=== PATIENT | male | born 1975 | race Caucasian/White ===

== ENCOUNTER 2020-02-08 07:01 | Outpatient (REF) | payer MEDICAID, SELFPAY | END 2020-02-08 07:02 | disposition home or self-care (01) | LOC: HO.LAB 07:01 | PROVIDERS: Visit Provider Internal Medicine | DX: Z20.828 Contact with and (suspected) exposure to other viral communicable diseases (principal) | CPT/HCPCS: C9803; U0003 ==

== ENCOUNTER 2024-11-16 09:34 | Outpatient (REF) | payer OTHER, SELFPAY ==
--- OUTSIDE RECORDS SUMMARY | 2024-11-16 09:00 | XMS_ITS | Encounter Summary ---
Demographics Address [address] [place] [address] [address] [place] [address] Mobile Phone Work Phone Home Phone Preferred Language es Marital Status Single Denominational Affiliation Unknown Race White Ethnic Group Unknown Author Organization [employer] Address [address] [facility] [address] [place] [address] Care Team Providers Care Brass Finisher Name Role Phone Jeni Reyes MD Primary Care Provider [phone] Reason for Referral * Consultation (Urgent) - Pending Review Specialty Diagnoses / Procedures Referred By Kb winkler Referred To Contact Gastroenterology Diagnoses Colon cancer screening Polyp of cecum Jeni Reyes MD [address] [place] [address] Phone: tel: fax: Referral ID Status Reason Start Date Expiration Date Visits Requested Visits Authorized [id number] Pending Review Specialty Services Required 11/16/2024 11/16/2025 1 1 Scheduling Instructions [facility] for repeat colonoscopy due in 03/2025 Encounter Details Date Type Department Care Team (Latest Contact Info) Description 11/16/2024 9:00 AM EDT Office Visit [facility] MED & PEDS [address] [place] [address] Jeni Reyes MD [address] [place] [address] Chronic pain of both knees (Primary Dx); Cervical disc disorder with radiculopathy; Lumbar disc disease with radiculopathy; Lateral epicondylitis of left elbow; Colon cancer screening; Polyp of cecum; Depressive disorder Social History Tobacco Use Types Packs/Day Years Used Date Smoking Tobacco: Never Passive Smoke Exposure: Never Smokeless Tobacco: Never Depression Answer Date Recorded Patient Health Questionnaire-9 Score 13 11/16/2024 Patient Health Questionnaire-9 Score 13 11/16/2024 Last PHQ-9: Questionnaire Data Not on file 0 11/16/2024 Housing Stability Answer Date Recorded What is your housing situation today? I have madelyn meza 05/05/[address] you li ve. Do you have problems with any of the following? None of the above 05/05/2024 Food Insecurity Answer Date Recorded Within the past 12 months, y ou worried that your food would run out before you got money to buy more: Never True 05/05/2024 Within the past 12 months,th e food you bought just didn't last and you didn't have enough money to get more: Never True Transportation Answer Date Recorded In the past 12 months, has l ack of transportation kept you from medical appts, meetings, work or from getting things needed for daily living? No 05/05/2024 Utilities Answer Date Recorded In the past 12 months, has t he electric, gas, oil or water company threatened to shut off services in your home? No 05/05/2024 Depression Answer Date Recorded Patient Health Questionnaire-2 Score 3 11/16/2024 Internet Access Answer Date Recorded Internet Access Q1 Yes 05/05/2024 Internet Access Q2 Not on file 05/05/2024 Sex and Gender Information Value Date Recorded Sex Assigned at Male 01/07/2022 10:17 AM EDT Legal Sex Male 10:17 AM EDT Gender Identity Male 01/07/2022 10:17 AM EDT Sexual Orientation Choose not to disclose 2021 10:17 AM EDT documented as of this encounter Last Filed Vital Signs Vital Sign Reading Time Taken Comments Blood Pressure 130/80 11/16/2024 9:08 AM EDT Pulse 68 11/16/2024 9:08 AM EDT Temperature 36.6 C (97.8 F) 11/16/2024 9:08 AM EDT Respiratory Rate 20 11/16/2024 9:08 AM EDT Oxygen Saturation - - Inhaled Oxygen Concentration - - Weight 80.7 kg (178 lb) 11/16/2024 9:08 AM EDT Height - - Body Mass Index 24.56 05/14/2024 10:09 AM EST documented in this encounter Functional Status * Over the past 2 weeks, how often have you been bothered by any of the following problems? Question Answer Date of Assessment Author Patient Health Questionnaire -2 Score 3 11/16/2024 9:28 AM Ron Yarbrough MA * Little interest or pleasure in doing things Answer Date of Assessment Author More than half the days 11/16/2024 9:28 AM Federica Medina MA * Feeling down, depressed, or hopeless Answer Date of Assessment Author Several days 11/16/2024 9:28 AM Federica Yarbrough MA * Trouble falling or staying asleep, or sleeping too much Answer Date of Assessment Author Nearly every day 11/16/2024 9:28 AM Federica Salvador MA * Feeling tired or having little energy Answer Date of Assessment Author More than half the days 11/16/2024 9:28 AM Federica Medina MA * Poor appetite or overeating Answer Date of Assessment Author Several days 11/16/2024 9:28 AM Federica Yarbrough MA * Feeling bad about yourself - or that you are a failure or have let yourself or your family down Answer Date of Assessment Author Several days 11/16/2024 9:28 AM Federica Yarbrough MA * Trouble concentrating on things, such as reading the newspaper or watching television Answer Date of Assessment Author Several days 11/16/2024 9:28 AM Federica Yarbrough MA * Moving or speaking so slowly that other people could have noticed? Or the opposite - being so fidgety or restless that you have been moving around a lot more than usual. Answer Date of Assessment Author More than half the days 11/16/2024 9:28 AM Federica Medina MA * Thoughts that you would be better off or hurting yourself in some way Answer Date of Assessment Author Not at all 11/16/2024 9:28 AM Federica Yarbrough MA * Patient Health Questionnaire-9 Score Answer Date of Assessment Author 13 11/16/2024 9:28 AM Federica Yarbrough MA documented as of this encounter Progress Notes * Jeni Ryees MD - 11/16/2024 9:00 AM EDT Subjective Patient ID: Leoncio Roque is a 49 y.o. male who presents for follow up. Leoncio is a 49 y/o male patient of mine here for follow up. C/O chronic bilateral knee pain, left elbow, back and neck pain. Patient has had multiple surgeries for this matter , especially of elbow, back and neck. Has a hard time getting comfy in any position.He hasn't received his shower chair [facility].Here with today who states he becomes irritable especially more at night time when nara lot of pain.He sees psych and therapist as well. Review of Systems Constitutional: Negative for activity change, chills, fever and unexpected weight change. Respiratory: Negative for cough, shortness of breath and wheezing. Cardiovascular: Negative for chest pain, palpitations and leg swelling. Gastrointestinal: Negative for abdominal pain and blood in stool. Endocrine: Negative for polydipsia and polyuria. Genitourinary: Negative for decreased urine volume, difficulty urinating, dysuria and hematuria. Musculoskeletal: Positive for arthralgias, back pain, gait problem, neck pain and neck stiffness. Negative for joint swelling. Skin: Negative for color change and rash. Neurological: Negative for dizziness and headaches. Hematological: Negative for adenopathy. Does not bruise/bleed easily. Psychiatric/Behavioral: Positive for sleep disturbance. Negative for dysphoric mood, hallucinationsand suicidal ideas. The patient is not nervous/anxious. Objective BP 130/80 (BP Location: Left arm, Patient Position: Sitting, BP Cuff Size: Adult) Pulse68 Temp 97.8 ??F (36.6 ??C) (Oral) Resp 20 Wt 178 lb (80.7 kg) BMI 24.56 kg/m?? Physical Exam Vitals reviewed. Constitutional: Appearance: Normal appearance. HENT: Nose: No congestion. Eyes: Extraocular Movements: Extraocular movements intact. Pupils: Pupils are equal, round, and reactive to light. Cardiovascular: Rate and Rhythm: Normal rate and regular rhythm. Heart sounds: Normal heart sounds. Pulmonary: Effort: Pulmonary effort is normal. Breath sounds: Normal breath sounds. Musculoskeletal: Left elbow: Swelling present. Tenderness present. Lumbar back: Spasms present. Decreased range of motion. Right knee: Crepitus present. Left knee: Crepitus present. Right lower leg: No edema. Left lower leg: No edema. Neurological: Mental Status: He is alert and oriented to person, place, and time. Mental status is at baseline. Psychiatric: Mood and Affect: Mood normal. Behavior: Behavior normal. Assessment/Plan Diagnoses and all orders for this visit: Chronic pain of both knees Comments: Check labs today, RF, sed rate,uric acid etc.. Refer for eval after lab review.Refilled pain meds. Orders: - CBC auto differential; Future - Vitamin B12/Folate, Serum Panel; Future - Vitamin D, 25-Hydroxy, Total, Immunoassay; Future - Uric acid; Future - Sed Rate by Modified Westergren; Future - Rheumatoid Factor; Future Cervical disc disorder with radiculopathy Comments: New MRI of cervical spine reviewed today and shows no changes.Take meds as usual.Minor relief only unfortunately.Has had surgery and injections already as well. Orders: - diclofenac (Voltaren) 75 MG EC tablet; Take 1 tab orally twice a day for pain - lidocaine-prilocaine (Emla) 2.5-2.5 % cream; Apply to affected area daily as needed for pain - CBC auto differential; Future - Vitamin B12/Folate, Serum Panel; Future - Vitamin D, 25-Hydroxy, Total, Immunoassay; Future - Uric acid; Future - Sed Rate by Modified Westergren; Future - Rheumatoid Factor; Future - HYDROcodone-acetaminophen (Arley) 5-325 MG tablet; Take 1 tablet by mouth every 12 (twelve) hoursif needed for severe pain. Lumbar disc disease with radiculopathy Comments: Sees . Orders: - diclofenac (Voltaren) 75 MG EC tablet; Take 1 tab orally twice a day for pain - lidocaine-prilocaine (Emla) 2.5-2.5 % cream; Apply to affected area daily as needed for pain - CBC auto differential; Future - Vitamin B12/Folate, Serum Panel; Future - Vitamin D, 25-Hydroxy, Total, Immunoassay; Future - Uric acid; Future - Sed Rate by Modified Westergren; Future - Rheumatoid Factor; Future - HYDROcodone-acetaminophen (Arley) 5-325 MG tablet; Take 1 tablet by mouth every 12 (twelve) hoursif needed for severe pain. Lateral epicondylitis of left elbow Comments: Leoncio is to continue elbow sleeve but needs to apply ice in meantime to decrease inflammation, refilled diclofenac, tizanidine, gabapentin etc. Orders: - diclofenac (Voltaren) 75 MG EC tablet; Take 1 tab orally twice a day for pain - CBC auto differential; Future - Vitamin B12/Folate, Serum Panel; Future - Vitamin D, 25-Hydroxy, Total, Immunoassay; Future - Uric acid; Future - Sed Rate by Modified Westergren; Future - Rheumatoid Factor; Future Colon cancer screening Comments: Up to date and done at [facility] by in 03/2024, needs repeat in 03/2025, new GI referral done. Orders: - Referral to Gastroenterology; Future Polyp of cecum Comments: See as above. Orders: - Referral to Gastroenterology; Future Depressive disorder Comments: Mood stable,sees psych, only new med is hydroxyzine prn. Other orders - gabapentin (Neurontin) 600 MG tablet; Take 1 tablet (600 mg) by mouth 3 times daily. - baclofen (Lioresal) 10 MG tablet; Take 1 tablet (10 mg) by mouth 3 times daily. documented in this encounter Plan of Treatment Upcoming Encounters Date Type Department Care Team (Late st Contact Info) Description 02/02/2025 12:45 PM EST Office Visit [facility] ADULT DENTAL [address] [place] [address] Robert Lemos Scheduled Orders Name Type Priority Associated Diagnoses Orde r Schedule CBC auto differential Lab Routine Cervical disc disorder with radiculopathy Lumbar disc disease with radiculopathy Lateral epicondylitis of left elbow Chronic pain of both knees Expected: 11/16/2024 (Approximate), Expires: 11/16/2025 Vitamin B12/Folate, Serum Panel Lab Routine Cervical disc disorder with radiculopathy Lumbar disc disease with radiculopathy Lateral epicondylitis of left elbow Chronic pain of both knees Expected: 11/16/2024, Expires: 11/16/2025 Vitamin D, 25-Hydroxy, Total, Immunoassay Lab Routine Cervical disc disorder with radiculopathy Lumbar disc disease with radiculopathy Lateral epicondylitis of left elbow Chronic pain of both knees Expected: 11/16/2024 (Approximate), Expires: 11/16/2025 Uric acid Lab Routine Cervical disc disorder with radiculopathy Lumbar disc disease with radiculopathy Lateral epicondylitis of left elbow Chronic pain of both knees Expected: 11/16/2024 (Approximate), Expires: 11/16/2025 Sed Rate by Modified Westergren Lab Routine Cervical disc disorder with radiculopathy Lumbar disc disease with radiculopathy Lateral epicondylitis of left elbow Chronic pain of both knees Expected: 11/16/2024, Expires: 11/16/2025 Rheumatoid Factor Lab Routine Cervical disc disorder with radiculopathy Lumbar disc disease with radiculopathy Lateral epicondylitis of left elbow Chronic pain of both knees Expected: 11/16/2024, Expires: 11/16/2025 Scheduled Referrals Name Type Priority Associated Diagnoses Order Schedule Referral to Gastroenterology Outpatient Referral Urgent Colon cancer screening Polyp of cecum Expected: 11/16/2024 (Approximate), Expires: 11/16/2025 documented as of this encounter Visit Diagnoses Diagnosis Chronic pain of both knees- Primary Cervical disc disorder with radiculopathy Other and unspecified disc disorder of cervical region Lumbar disc disease with radiculopathy Lateral epicondylitis of left elbow Colon cancer screening Special screening for malignant neoplasms, colon Polyp of cecum Depressive disorder Depressive disorder, not elsewhere classified documented in this encounter Additional Health Concerns Assessment Noted Time PHQ-9 Depression Total Score: 13 025 9:28 AM EDT documented as of this encounter Care Teams Brass Finisher Relationship Specialty Start Date End Date Jeni Reyes MD [address] [place] [address] PCP - General Family Medicine 03/10/18 documented as of this encounter
--- OUTSIDE RECORDS SUMMARY | 2024-11-16 11:04 | XMS_ITS | Clinical Summary ---
Author Organization [facility] Address [address] [place] [address] Care Team Providers Care Lime Boiler Name Role Phone Unavailable Primary Care Provider Unavailabl e Allergies Active Allergy Reactions Criticality Noted Date Comments Aspirin Rash/Dermatitis Medium 05/17/2020 Penicillins Rash/Dermatitis Medium 05/17/2020 Medications clindamycin (CLEOCIN) 300 MG capsuleIndicati ons:Caries Take 1 capsule (300 mg total) by mouth 3 (three) times a day. 21 capsule 1 Active chlorhexidine (PERIDEX) 0.12 % oral solutionIndicat ions:Caries Apply 15 mL to the mouth or throat 2 (two) times a day. 210 mL 1 Active oxyCODONE (ROXICODONE) 5 MG immediate release tabletIndicatio ns:Caries Take 1 tablet (5 mg total) by mouth 4 times daily (every 6 hours) as needed for severe pain (Take for pain that is uncontrolled with tylenol and motrin). Max Daily Amount: 20 mg 6 tablet 1 Active ibuprofen (MOTRIN) 600 MG tabletIndicatio ns:Caries Take 1 tablet (600 mg total) by mouth every 6 (six) hours. 20 tablet 1 Active acetaminophen (TYLENOL) 500 MG tabletIndicatio ns:Caries Take 1 tablet (500 mg total) by mouth every 6 (six) hours. 20 tablet 1 Active Social History Tobacco Use Types Packs/Day Years Used Date Smoking Tobacco: Never Assessed Sex and Gender Information Value Date Recorded Sex Assigned at Not on file Legal Sex Male 10:31 AM EST Gender Identity Not on file Sexual Orientation Not on file Last Filed Vital Signs Vital Sign Reading Time Taken Comments Blood Pressure 135/77 05/17/2020 1:54 PM EST Pulse 60 05/17/2020 1:54 PM EST Temperature 35.9 C (96.6 F) 05/17/2020 1:54 PM EST Respiratory Rate 16 05/17/2020 1:54 PM EST Oxygen Saturation 100% 05/17/2020 1:54 PM EST Inhaled Oxygen Concentration - - Weight - - Height - - Body Mass Index - - Plan of Treatment Health Maintenance Due Date Last Done Comments Hepatitis C Virus Screening 1977 HIV Screening 1990 DTaP/Tdap/Td Vaccines (1 - Tdap) 1996 Hepatitis B Vaccines (1 of 3 - 19+ 3-dose series) 1996 Colonoscopy 2022 Influenza Vaccine 10/08/2024 COVID-19 Vaccine (1 - 2023-2 5 season) 2024 Pneumococcal Vaccine: Pediat nayeli (0-5 Years) and At-Risk Patients (6 to 49 Years) Aged Out No longer eligible b ased on patient's age to complete this topic Insurance [facility] [employer]
--- OUTSIDE RECORDS SUMMARY | 2024-11-16 11:04 | XMS_ITS | Encounter Summary ---
Demographics Address [address] [place] [address] [address] [place] [address] Mobile Phone Work Phone Home Phone Preferred Language es Marital Status Single Christianity Affiliation Unknown Race White Ethnic Group Unknown Author Organization [employer] Address [address] [facility] [address] [place] [address] Care Team Providers Care Flange Machine Operator Name Role Phone Jeni Reyes MD Primary Care Provider [phone] Reason for Visit * Reason Comments Med Refill Encounter Details Date Type Department Care Team (Late Contact Info) Description 06/06/2022 Refill [facility] MED & PEDS [address] [place], [place] [id number] Jeni Reyes MD [address] [place] [address] Lateral epicondylitis of left elbow; Cervical disc disorder with radiculopathy; Lumbar disc disease with radiculopathy Social History Tobacco Use Types Packs/Day Years Used Date Smoking Tobacco: Never Passive Smoke Exposure: Never Smokeless Tobacco: Never Depression Answer Date Recorded Patient Health Questionnaire-9 Score 6 05/30/2022 Depression Answer Date Recorded Patient Health Questionnaire-2 Score 3 05/30/2022 Sex and Gender Information Value Date Recorded Sex Assigned at Male 01/07/2022 10:17 AM EDT Legal Sex Male 10:17 AM EDT Gender Identity Male 01/07/2022 10:17 AM EDT Sexual Orientation Choose not to disclose 2021 10:17 AM EDT COVID-19 Exposure Response Date Recorded In the last 10 days, have yo u been in contact with someone who was confirmed or suspected to have Coronavirus/COVID-19? No / Unsure 05/30/2022 10:00 AM EDT documented as of this encounter Plan of Treatment Upcoming Encounters Date Type Department Care Team (Late Contact Info) Description 02/02/2025 12:45 PM EST Office Visit [facility] CHC ADULT DENTAL [address] [place] [address] Robert Lemos documented as of this encounter Visit Diagnoses Diagnosis Lateral epicondylitis of left elbow Cervical disc disorder with radiculopathy Other and unspecified disc disorder of cervical region Lumbar disc disease with radiculopathy documented in this encounter Additional Health Concerns Assessment Noted Time PHQ-9 Depression Total Score: 6 05/31/19 23 10:20 AM EDT documented as of this encounter Care Teams Flange Machine Operator Relationship Specialty Start Date End Date Jeni Reyes MD [address] [place] [address] PCP - General Family Medicine 03/10/18 documented as of this encounter
--- OUTSIDE RECORDS SUMMARY | 2024-11-16 11:04 | XMS_ITS | Encounter Summary ---
Demographics Address [address] [place] [address] Mobile Phone Work Phone Home Phone Preferred Language es Marital Status Single Yazidism Affiliation Unknown Race White Ethnic Group Unknown Author Organization [employer] Address [address] [place] [address] Care Team Providers Care Fence Supervisor Name Role Phone Jeni Reyes MD Primary Care Provider [phone] Encounter Details Date Type Department Care Team (Latest Contact Info) Description 11/16/2024 Travel Social History Tobacco Use Types Packs/Day Years [...] AM EDT documented as of this encounter Functional Status * Over the past 2 weeks, how often have you been bothered by any of the following problems? Question Answer Date of Assessment Author Patient Health Questionnaire -2 Score 3 11/16/2024 9:28 AM EDT Ron Mace MA * Little interest or pleasure in doing things Answer Date of Assessment Author More than half the days 11/16/2024 9:28 AM EDT Federica Keith MA * Feeling down, depressed, or hopeless Answer Date of Assessment Author Several days 11/16/2024 9:28 AM SLIMET Federica Mace MA * Trouble falling or staying asleep, or sleeping too much Answer Date of Assessment Author Nearly every day 11/16/2024 9:28 AM EDT Federica Layne MA * Feeling tired or having little energy Answer Date of Assessment Author More than half the days 11/16/2024 9:28 AM Federica Medina MA * Poor appetite or overeating Answer Date of Assessment Author Several days 11/16/2024 9:28 AM SLIMET Federica Layne MA * Feeling bad about yourself - or that you are a failure or have let yourself or your family down Answer Date of Assessment Author Several days 11/16/2024 9:28 AM SLIMET Federica Mace MA * Trouble concentrating on things, such [...] than half the days 11/16/2024 9:28 AM EDT R Federica keane MA * Thoughts that you would be better off or hurting yourself in some way Answer Date of Assessment Author Not at all 11/16/2024 9:28 AM EDT Federica Mace MA * Patient Health Questionnaire-9 Score Answer Date of Assessment Author 13 11/16/2024 9:28 AM EDT Federica Mace MA documented as of this encounter Plan of Treatment Upcoming Encounters Date Type Department Care Team (Late st Contact Info) Description 02/02/2025 12:45 PM EST Office Visit [facility] ADULT DENTAL [address] [place] [address] Robert Lemos documented as of this encounter Visit Diagnoses Not on filedocumented in this encounter Additional Health Concerns Assessment Noted Time PHQ-9 Depression Total Score: 13 025 9:28 AM EDT documented as of this encounter Care Teams Fence Supervisor Relationship Specialty Start Date End Date Jeni Reyes MD [address] [place] [address] PCP - General Family Medicine 03/10/18 documented as of this encounter
--- OUTSIDE RECORDS SUMMARY | 2024-11-16 11:04 | XMS_ITS | Encounter Summary ---
Demographics Address [address] [facility] [address] [place] [address] Mobile Phone Work Phone Home Phone Preferred Language es Marital Status Single Oriental Orthodox Affiliation Unknown Race White Ethnic Group Unknown Author Organization [employer] Address [address] [facility] [address] [place] [address] Care Team Providers Care Redevelopment Manager Name Role Phone Jeni Reyes MD Primary Care Provider [phone] Reason for Visit * Reason Onset Date Comments Chart prep 11/15/2024 Encounter Details Date Type Department Care Team ([facility] st Contact Info) Description 11/15/2024 Telephone [facility] MED & PEDS [address] [place] [address] Jeni Reyes MD [address] [place] [address] Chart prep Social History Tobacco Use Types Packs/Day Years [...] AM EDT documented as of this encounter Miscellaneous Notes * Telephone Encounter - Federica Mace MA - 11/15/2024 8:35 AM EDT Chart Prep Labs: not applicable Images: done Referrals: complete Vaccines due: Hep B Screenings: STI screening Overdue care gaps: PHQ-9, Disability screen, and Tobacco documented in this encounter Plan of Treatment Upcoming Encounters Date Type Department Care Team (Late st Contact Info) Description 02/02/2025 12:45 PM EST Office Visit [facility] ADULT DENTAL [address] [place] [address] Robert Lemos documented as of this encounter Visit Diagnoses Not on filedocumented in this encounter Additional Health Concerns Assessment Noted Time PHQ-9 Depression Total Score: 13 025 10:38 AM EST documented as of this encounter Care Teams Redevelopment Manager Relationship Specialty Start Date End Date Jeni Reyes MD [address] [place] [address] PCP - General Family Medicine 03/10/18 documented as of this encounter
--- OUTSIDE RECORDS SUMMARY | 2024-11-16 11:04 | XMS_ITS | Clinical Summary ---
Demographics Address [address] [place] [address] [address] [place] [address] Mobile Phone Work Phone Home Phone Preferred Language es Marital Status Single Rastafarian Affiliation Unknown Race White Ethnic Group Unknown Author Organization [employer] Address [address] [place] [address] Care Team Providers Care Machine Operators Name Role Phone Jeni Reyes MD Primary Care Provider [phone] Allergies Active Allergy Reactions Criticality Noted Date Comments Aspirin Rash Medium 05/17/2020 Other reaction(s): rash Penicillins Unknown,Rash Medium 05/03/2016 Other reaction(s): rash, Unknown since childhood Medications * This document contains information received from the source organization and may not represent a complete record from that organization. ARIPiprazole (Abilify) 5 MG tablet Take 5 mg by mouth in the morning. 02/13/20 22 Active doxepin (SINEquan) 150 MG capsule TAKE 1 CAPSULE BY MOUTH EVERYDAY AT BEDTIME 02/14/20 22 Active DULoxetine (Cymbalta) [address] capsule Take 60 mg by mouth 2 times daily. 03/08/20 22 Active tiZANidine (Zanaflex) 4 MG tabletIndication s:Cervical disc disorder with radiculopathy,Kendra mbar disc disease with radiculopathy,La teral epicondylitis of left elbow TAKE 1 TABLET BY MOUTH every 8 hours as needed for pain 60 tablet 5 12/03/19 24 Active hydrOXYzine pamoate (Vistaril) 50 MG capsule Take 50 mg by mouth at bedtime. 09/21/19 25 Active gabapentin (Neurontin) 600 MG tablet Take 1 tablet (600 mg) by mouth 3 times daily. 90 tablet 5 11/17/19 25 Active diclofenac (Voltaren) 75 MG EC tabletIndication s:Cervical disc disorder with radiculopathy,Kendra mbar disc disease with radiculopathy,La teral epicondylitis of left elbow Take 1 tab orally twice a day for pain 60 tablet 5 11/17/19 25 Active baclofen (Lioresal) 10 MG tablet Take 1 tablet (10 mg) by mouth 3 times daily. 90 tablet 3 11/17/19 25 Active lidocaine-priloc leora (Emla) 2.5-2.5 % creamIndications :Cervical disc disorder with radiculopathy,Kendra mbar disc disease with radiculopathy Apply to affected area daily as needed for pain 30 g 5 11/17/19 25 Active HYDROcodone-acet aminophen ([place]) 5-325 MG tabletIndication s:Cervical disc disorder with radiculopathy,Kendra mbar disc disease with radiculopathy Take 1 tablet by mouth every 12 (twelve) hours if needed for severe pain. 30 tablet 11/17/19 25 Active diclofenac (Voltaren) 75 MG EC tabletIndication s:Cervical disc disorder with radiculopathy,Kendra mbar disc disease with radiculopathy,La teral epicondylitis of left elbow Take 1 tab orally twice a day for pain 60 tablet 5 05/15/19 25 025 Discontinued(Re order (will not trigger notification to Pharmacy)) lidocaine-priloc leora (Emla) 2.5-2.5 % creamIndications :Cervical disc disorder with radiculopathy,Kendra mbar disc disease with radiculopathy Apply to affected area daily as needed for pain 30 g 5 05/15/19 25 025 Discontinued(Re order (will not trigger notification to Pharmacy)) gabapentin (Neurontin) 600 MG tablet Take 1 tablet (600 mg) by mouth 3 times daily. 90 tablet 5 05/15/19 25 025 Discontinued(Re order (will not trigger notification to Pharmacy)) HYDROcodone-acet aminophen ([place]) 5-325 MG tabletIndication s:Cervical disc disorder with radiculopathy,Kendra mbar disc disease with radiculopathy Take 1 tablet by mouth every 12 (twelve) hours if needed for severe pain. 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 Lateral epicondylitis 08/28/2012 Anxiety 03/06/2012 Lumbar disc disease with radiculopathy 2 Encounters Date Type Department Care Team Description 11/16/2024 9:00 AM EDT Office Visit [facility] [address] [place] [address] Jeni Reyes MD Chronic pain of both knees (Primary Dx); Cervical disc disorder with radiculopathy; Lumbar disc disease with radiculopathy; Lateral epicondylitis of left elbow; Colon cancer screening; Polyp of cecum; Depressive disorder 11/16/2024 Travel 11/15/2024 Telephone [facility] [address] [place] [address] Jeni Reyes MD Chart prep from Last 3 Months Immunizations Immunization Administration Dates Next Due Hep B, adult 08/28/2012 Influenza injectable quadriv alent IIV4 with preservative 12/22/2018,01/09/2018,02/21/2017,2014 Influenza injectable quadriv alent preservative free 03/27/2023,12/03/2021,02/23/2016 Influenza, Split (incl. morgan fied surface antigen) 11/16/2012,03/06/2012 Influenza, seasonal, injecta ble, preservative free 05/14/2024,12/03/2023 Moderna Covid-19 Vaccine 12+ 10/13/2020 Tdap 04/05/2015 Social History Tobacco Use Types Packs/Day Years Used Date Smoking Tobacco: Never Passive Smoke Exposure: Never Smokeless Tobacco: Never Tobacco Cessation:Counseling Given: Not Answered Depression Answer Date Recorded Patient Health Questionnaire-9 Score 13 11/16/2024 Patient Health Questionnaire-9 Score 13 11/16/2024 Last PHQ-9: Questionnaire Data Not on file 0 11/16/2024 Housing Stability Answer Date Recorded What is your housing situation today? I have madelyn sing 05/05/[address] you li [...] not to disclose 2021 10:17 AM EDT Last Filed Vital Signs Vital Sign Reading Time Taken Comments Blood Pressure 130/80 11/16/2024 9:08 AM EDT Pulse 68 11/16/2024 9:08 AM EDT Temperature 36.6 C (97.8 F) 11/16/2024 9:08 AM EDT Respiratory Rate 20 11/16/2024 9:08 AM EDT Oxygen Saturation 98% 07/15/2023 9:51 AM EDT Inhaled Oxygen Concentration - - Weight 80.7 kg (178 lb) 11/16/2024 9:08 AM EDT Height 181.3 cm (5' 11.38 ) 05/14/2024 10:09 AM EST Body Mass Index 24.56 05/14/2024 10:09 AM EST Plan of Treatment Upcoming Encounters Date Type Department Care Team (Late st Contact Info) Description 02/02/2025 12:45 PM EST Office Visit [facility] [address] [place] [address] Robert Lemos Health Maintenance Due Date Last Done Comments CT Colonography 1977 FIT DNA/Cologuard 1975 FIT 1977 FOBT 1975 HIV Screening 1975 Sigmoidoscopy 1975 Family Planning (PISQ) 1992 Hepatitis B Vaccines (2 of 3 - 19+ 3-dose series) 09/25/2012 08/28/2012 COVID-19 Vaccine (3 - 2024- season) 2024 10/13/2020, 09/15/2020 Influenza Vaccine (#1) 2024 , 12/03/2023, 03/27/2023, Additional history exists Colonoscopy 04/01/2025 04/01/2024 Colorectal Cancer Screening 04/01/2025 DTaP/Tdap/Td Vaccines (2 - Td or Tdap) 04/05/2025 04/05/2015 SDOH Screening 05/05/2025 05/05/2024 Alcohol/Substance Use Screening 05/14/2025 05/14/2024 Depression Monitoring 05/16/2025 11/16/2024, 025 Disability Screening 11/16/2025 11/16/2024 Tobacco Screening 11/16/2025 11/16/2024 Zoster Vaccines (1 of 2) 10/08/2027 Lipid Panel 12/02/2028 12/03/2023 RSV Patients and Patients Aged 60 years or older (1 - 1-dose 75+ series) 2052 Hepatitis C Screening Completed 12/03/2023 HIB Vaccines Aged Out No longer eligi ble based on patient's age to complete this topic HPV Vaccines Aged Out No longer eligi ble based on patient's age to complete this topic Hepatitis A Vaccines Aged Out No long er eligible based on patient's age to complete this topic IPV Vaccines Aged Out No longer eligi ble based on patient's age to complete this topic Meningococcal B Vaccine Aged Out No l onger eligible based on patient's age to complete this topic Meningococcal Vaccine Aged Out No domingo hansa eligible based on patient's age to complete this topic Pneumococcal Vaccine: Pediatrics (0 to 5 Years) and At-Risk Patients (6 to 49) Years Aged Out No longer eligible based on patient's age to complete this topic RSV under 20 months Aged Out No longe r eligible based on patient's age to complete this topic Rotavirus Vaccines Aged Out No longer eligible based on patient's age to complete this topic Procedures Procedure Name Priority Date/Time Associated Diagnosis Comments COLONOSCOPY Routine 04/01/2024 HEPATITIS C AB W/REFL TO HCV RNA, QN, PCR Routine 12/03/2023 11:12 AM EDT Encounter for immunization Cervical disc disorder with radiculopathy Lumbar disc disease with radiculopathy Lateral epicondylitis of left elbow Lateral epicondylitis of left elbow Chronic left shoulder pain Routine medical exam LIPID PANEL, STANDARD Routine 12/03/2023 11:12 AM EDT Encounter for immunization Cervical disc disorder with radiculopathy Lumbar disc disease with radiculopathy Lateral epicondylitis of left elbow Lateral epicondylitis of left elbow Chronic left shoulder pain Routine medical exam from Last 3 Months or Most Recently Relevant to Health Maintenance Results * Colonoscopy (04/01/2024) Colonoscopy Normal Normal Jeni Reyes MD HEALTH MAINTENANCE Final Resu lt * Hepatitis C Antibody with Reflex to HCV, RNA, Quantitative, Real-Time PCR (12/03/2023 11:12 AM EDT) Hepatitis C Antibody Nonreactive Nonreactive [facility] Comment:Antibodies to HCV no t detected; does not exclude early acuteHCV infection. Blood Venous blood specimen / Unknown 12/03/2023 11:12 AM EDT 12/03/2023 3:03 PM EDT us Jeni Reyes MD LAB BLOOD ORDERABLES Final Re sult [facility] [address] [place] [phone] * (ABNORMAL) Lipid Panel, Standard (12/03/2023 11:12 AM EDT) Triglycerides 99 <150 mg/dL [facility] Comment:Desirable Triglyceri de: less than 150 mg/dLBorderline High Triglyceride 150-199 mg/dLHigh Triglyceride: 200-499 mg/dLVery High Triglyceride: greater than or equal to 5OO mg/dL Cholesterol 138 <200 mg/dL [facility] Comment:Desirable Cholestero l: less than 200 mg/dLBorderline High Cholesterol: 200-239 mg/dLHigh Cholesterol: greater than 239 mg/dL LDL Cholesterol Calculated 86 <100 mg/dL [facility] Comment:Desirable LDL: less than 100 mg/dLNear Optimal/Above Optimal LDL: 110- 129 mg/dLBorderline High LDL: 130-159 mg/dLHigh LDL: 160-189 mg/dLVery High LDL: greater than or equal to 190 mg/dL HDL Cholesterol 33(L) >40 mg/dL [facility] Comment:Desirable HDL: great er than 40 mg/dL Note: This HDL assay may give artificially low results in patients with liver disease. Blood Venous blood specimen / Unknown 12/03/2023 11:12 AM EDT 12/03/2023 3:03 PM EDT us Jeni Reyes MD LAB BLOOD ORDERABLES Final Re sult [facility] [address] [place] [phone] [phone] from Last 3 Months or Most Recently Relevant to Health Maintenance Insurance [address] [place] [address] [employer] < 65 [place] [id number] * Guarantor: Leoncio Rodriguez I Account Type Relation to Patient Date of Phone Billing Address Personal/Family Self [address] [place] [address] * Guarantor: Leoncio Rodriguez I Account Type Relation to Patient Date of Phone Billing Address Personal/Family Self [address] [place] [address] * Guarantor: Leoncio Rodriguez I Account Type Relation to Patient Date of Phone Billing Address Personal/Family Self [address] [place] [address] * Guarantor: Leoncio Rodriguez I Account Type Relation to Patient Date of Phone Billing Address Dental Self [address] [place] [address] Care Teams Machine Operators Relationship Specialty Start Date End Date Jeni Reyes MD [address] [place] [phone] PCP - General Family Medicine 03/10/18
[2024-11-16 14:13] LABS: MANUAL DIFF FLAG NO
[2024-11-16 14:24] LABS: Hematocrit 41.5 % (42.0-52.0); Hemoglobin 13.7 g/dl (14.0-18.0); Imm Gran Abs Auto 0.05 X10*3/uL (0.00-0.03); Imm Gran Pct Auto 0.8 % (0.0-0.4); Lymphocytes Absolute Auto 1.8 X10*3/uL (1.2-4.9); Mean Corpuscular HGB Conc 33.0 g/dl (31.0-36.0); Mean Corpuscular Hemoglobin 30.9 pg (27.0-33.0); Mean Corpuscular Volume 93.7 fL (80.0-98.0); NRBC Abs Auto 0.000 X10*3/uL (0.0-0.012); NRBC Pct Auto 0.0 /100WBC (0.0-0.2); Platelet Count 248 X10*3/uL (160-400); Red Blood Count 4.43 X10*6/uL (4.60-5.80); White Blood Count 6.4 X10*3/uL (4.8-10.8)
[2024-11-16 14:54] LABS: Uric Acid 4.5 mg/dL (3.4-7.0)
[2024-11-16 15:26] LABS: Folate 12.1 ng/mL (> or = 4.0); Vitamin B12 264 pg/mL (200-900)
== END 2024-11-16 09:35 | disposition home or self-care (01) ==
LOC: HO.CHCLDS 09:34
PROVIDERS: Visit Provider Pediatrics
DX: M25.561 Pain in right knee (principal); M25.562 Pain in left knee; G89.29 Other chronic pain; M50.10 Cervical disc disorder with radiculopathy, unspecified cervical region; M51.16 Intervertebral disc disorders with radiculopathy, lumbar region; M77.12 Lateral epicondylitis, left elbow
CPT/HCPCS: 36415; 82306; 82607; 82746; 84550; 85025; 85652; 86431